=== PATIENT | female | born 1970 | race Hispanic/Latino ===

== ENCOUNTER 2018-10-11 07:57 | Outpatient (CLI) | payer OTHER ==
--- NOTE | 2018-10-11 08:54 | Ultrasound Report ---
LEFT BREAST ULTRASOUND HISTORY: Mammographic asymmetry at 12:00 COMPARISON: 10/04/2018 FINDINGS: Sonographic evaluation focused upon the 12:00 location of the left breast demonstrates an i sland of echogenic tissue surrounded by fat. This slightly irregular echogenic tissue is identified a t 12:00 approximately 2 cm from the nipple and it measures 8 x 4 x 3 mm. It correlates with the mammo graphic finding. A clip is identified at 1:00 2 cm from the nipple and a benign cyst is identified at 11:30 o'clock 2 cm from the nipple. No solid mass or shadowing. IMPRESSION Benign fibrous breast tissue at 12:00 2 cm from the nipple. This correlates with the mammographic fin ding. No suspicious finding. Routine mammographic screening. BIRADS 2: Benign Signer Name: Forest Cazares MD Signed: 10/11/2018 8:49 AM Workstation Name: [id number]
== END 2018-10-11 07:58 | disposition home or self-care (01) ==
LOC: SPVWC 07:57
PROVIDERS: ATTEND Surgery
DX: N60.02 Solitary cyst of left breast (principal)